=== PATIENT | female | born 1940 | race Caucasian/White ===

== ENCOUNTER 2020-05-20 14:41 | Emergency (ER) | payer MEDICARE, OTHER ==
--- NOTE | 2020-05-20 14:42 | EDM.PDOC ---
ED HPI GENERAL MEDICAL PROBLEM - General Chief Complaint: Gastrointestinal Problem Stated Complaint: FLU LIKE SYMPTOMS,POSSIBLE GI BLEED Time Seen by Provider: 05/20/20 14:42 Source of Information: Reports: Patient History Limitations: Reports: No Limitations - History of Present Illness INITIAL COMMENTS - FREE TEXT/NARRATIVE: Yudy, 80-year-old female, presents via ambulance after a 1 day history of flulike symptoms. She started experiencing nausea with some emesis that is led to dark brown with occasional red streaks in her emesis. She is an aspirin user but denies any other intake that would precipitate GI irritation. She has never had a GI bleed in the past that she is aware of. Feels somewhat dizzy and fatigued of which she demonstrates with mild pallor with stable vitals. She denies any shortness of breath chest pain nor abdominal pain. States that when this first started she thought it was the yogurt she had eaten as it was minimal blood appearance more coinciding with the yogurt she had recently ingested. Onset: Today, Sudden Duration: Minutes:, Getting Worse Location: Reports: Abdomen Quality: Reports: Pressure Severity: Moderate Improves with: Reports: None Worsens with: Reports: None Context: Reports: Sick Contact - Related Data Allergies Allergy/AdvReac Type Severity Reaction Status Date / Time No Known Drug Allergies Allergy Cannot Verified 05/20/20 14:44 Remember Home Meds: Home Meds LORazepam [Ativan] 0.5 mg PO BID PRN #60 tablet 12/25/13 [Rx] Ferrous Sulfate 325 mg PO DAILY 05/20/20 [History] Metoprolol Succinate [Toprol XL 50mg] 75 mg PO DAILY 05/20/20 [History] Montelukast [Singulair] 10 mg PO DAILY 05/20/20 [History] Multivitamin with Minerals [Multiple Vitamin] 1 tab PO DAILY 05/20/20 [History] Naproxen Sodium [Flanax] 220 mg PO BID PRN 05/20/20 [History] Sertraline [Zoloft] 100 mg PO DAILY 05/20/20 [History] amLODIPine [Norvasc] 10 mg PO DAILY 05/20/20 [History] Past Medical History HEENT History: Reports: Impaired Vision Cardiovascular History: Reports: Hypertension Respiratory History: Reports: None Gastrointestinal History: Reports: None Genitourinary History: Reports: None Musculoskeletal History: Reports: Osteoporosis, Other (See Below) (scoliosis) Neurological History: Reports: None Psychiatric History: Reports: Anxiety, Depression Hematologic History: Reports: Anemia Oncologic (Cancer) History: Reports: Basal Cell Carcinoma Dermatologic History: Reports: Other (See Below) (Basal cell carcinoma) - Past Surgical History Dermatological Surgical History: Reports: Other (See Below) (MOHS bridge of nose) - Past Imaging History Past Imaging History: Reports: Xray Social & Family History - Family History Family Medical History: No Pertinent Family History ED ROS GENERAL - Review of Systems Review Of Systems: Comprehensive ROS is negative, except as noted in HPI. ED EXAM, GENERAL - Physical Exam Exam: See Below Free Text/Narrative:: Alert, oriented arriving via ambulance. She has mild pallor noted with blood tinged residual to the lips and nares. There is a scar to the bridge of the nose into the forehead from her previous Mohs procedure. PERRLA no icterus no injection. Neck is soft supple with no lymphadenopathy no JVD. Thorax is mildly diminished secondary of her inspiratory effort with no wheezes nor crackles. Cardiac S1-S2 I do not appreciate murmur with occasional ectopy noted. Abdomen is soft bowel sounds are present no hepatosplenomegaly or tenderness on palpation. Rectal exam reveals dark black stool residual which is sent for testing. No active bleeding noted. Lower extremities have minimal edema she moves about with no discomfort nor complaint. #1 Interpretation EKG Date: 05/20/20 Time: 15:11 Rhythm: NSR Rate (Beats/Min): 89 [place]: Normal P-Wave: Present QRS: Normal ST-T: Normal QT: Normal Comparison: NA - No Prior EKG Course - Vital Signs Last Recorded V/S: Last Vital Signs Temp 97.1 F 05/20/20 16:30 Pulse 93 05/20/20 17:34 Resp 16 05/20/20 17:34 BP 157/60 H 05/20/20 17:34 Pulse Ox 99 05/20/20 17:34 - Orders/Labs/Meds Orders: Active Orders 24 hr Category Date Time Status EKG Documentation Completion [RC] ASDIRECTED Care 05/20/20 14:49 Active Peripheral IV Care [RC] . DIRECTED Care 05/20/20 14:48 Active TYPE AND SCREEN [BBK] Stat Lab 05/20/20 15:12 Received Sodium Chloride 0.9% [Normal Saline] 1,000 ml Med 05/20/20 15:15 Active IV ASDIRECTED Sodium Chloride 0.9% [Saline Flush] Med 05/20/20 14:48 Active 10 ml FLUSH Q8HR PRN Peripheral IV Insertion Adult [OM.PC] Routine Oth 05/20/20 14:48 Ordered EKG 12 Lead [EK] Urgent Ther 05/20/20 14:49 Ordered Medication Orders Sodium Chloride (Normal Saline) 1,000 mls @ 150 mls/hr IV ASDIRECTED [facility] Last Admin: 05/20/20 15:20 Dose: 150 mls/hr Documented by: MEDARDO Sodium Chloride (Sodium Chloride 0.9% 10 Ml Syringe) 10 ml FLUSH Q8HR PRN PRN Reason: keep vein open Labs: Laboratory Tests 05/20/20 05/20/20 Range/Units 15:12 15:12 WBC 12.45 H (5.00-10.00) 10^3/uL RBC 3.31 L (3.80-5.50) 10^6/uL Hgb 10.6 L (12.0-16.0) g/dL Hct 32.2 L (37.0-47.0) % MCV 97.3 H (82.0-92.0) fL MCH 32.0 H (27.0-31.0) pg MCHC 32.9 (32.0-36.0) g/dL RDW 13.3 (11.5-14.5) % Plt Count 207 (150-400) 10^3/uL MPV 8.4 (7.4-10.4) fL Add Manual Diff Yes Neutrophils % (Manual) 86 H (50-70) % Lymphocytes % (Manual) 11 L (20-40) % Monocytes % (Manual) 3 (2-8) % Absolute Neutrophils 10.71 Lymphocytes # (Manual) 1.37 Monocytes # (Manual) 0.37 Sodium 135 L (136-145) mmol/L Potassium 4.4 (3.5-5.1) mmol/L Chloride 100 (98-107) mmol/L Carbon Dioxide 24.7 (21.0-32.0) mmol/L Anion Gap 14.7 (5-15) mmol/L BUN 40 H (7-18) mg/dL Creatinine 0.90 (0.51-1.17) mg/dL Est Cr Clr Drug Dosing 48.19 mL/min Estimated GFR (MDRD) > 60 mL/min Glucose 143 H (70-140) mg/dL Calcium 9.6 (8.7-10.3) mg/dL Total Bilirubin 0.3 (0.2-1.0) mg/dL AST 18 (15-37) U/L ALT 18 (14-63) U/L Alkaline Phosphatase 67 (46-116) U/L Total Protein 6.7 (6.4-8.2) g/dL Albumin 3.63 (3.40-5.00) g/dL Meds: Medications Generic Name Dose Route Start Last Admin Trade Name Freq PRN Reason Stop Dose Admin Sodium Chloride 1,000 mls @ 150 mls/hr 05/20/20 15:15 05/20/20 15:20 Normal Saline IV 150 mls/hr ASDIRECTED TOSHIA Administration Sodium Chloride 10 ml 05/20/20 14:48 Sodium Chloride 0.9% 10 Ml Syringe FLUSH Q8HR PRN keep vein open Discontinued Medications Generic Name Dose Route Start Last Admin Trade Name Freq PRN Reason Stop Dose Admin Enalaprilat 1.25 mg 05/20/20 16:46 05/20/20 17:05 Enalaprilat 1.25 Mg/Ml Sdv IVPUSH 05/20/20 16:47 1.25 mg ONETIME ONE Administration Departure - Departure Time of Disposition: 17:39 Disposition: DC/Tfer to Acute Hospital 02 Condition: Fair Clinical Impression: GI bleeding, Anemia - Discharge Information *PRESCRIPTION DRUG MONITORING PROGRAM REVIEWED*: Not Applicable *COPY OF PRESCRIPTION DRUG MONITORING REPORT IN PATIENT ROSEY: Not Applicable Referrals: Elsi Byrnes PA-C [Primary Care Provider] - Forms: ED Department Discharge Additional Instructions: Dr [facility] accepting. Sepsis Event Note (ED) - Focused Exam Vital Signs: Vital Signs Temp Pulse Resp BP BP Pulse Ox 05/20/20 17:34 93 16 157/60 H 99 05/20/20 17:15 89 16 124/52 L 100 05/20/20 17:05 88 181/77 H 181/77 H 05/20/20 16:30 97.1 F 90 14 173/71 H 100 05/20/20 16:11 97.1 F 90 14 173/71 H 100 05/20/20 15:57 89 14 165/62 H 100 05/20/20 15:34 86 16 158/77 H 98 05/20/20 15:00 89 16 149/77 H 95 05/20/20 14:44 97.1 F 94 14 172/67 H 96 - Problem List & Annotations (1) GI bleeding SNOMED Code(s): 07384214 Code(s): K92.2 - GASTROINTESTINAL HEMORRHAGE, UNSPECIFIED Status: Acute Priority: High Current Visit: Yes Qualifiers: GI bleed type/associated pathology: unspecified peptic ulcer Qualified Code(s): K27.4 - Chronic or unspecified peptic ulcer, site unspecified, with hemorrhage (2) Anemia SNOMED Code(s): 104326098 Code(s): D64.9 - ANEMIA, UNSPECIFIED Status: Acute Current Visit: Yes Qualifiers: Anemia type: other cause - Problem List Review Problem List Initiated/Reviewed/Updated: Yes - My Orders Last 24 Hours: My Active Orders 05/20/20 14:48 Peripheral IV Care [RC] . DIRECTED Sodium Chloride 0.9% [Saline Flush] 10 ml FLUSH Q8HR PRN Peripheral IV Insertion Adult [OM.PC] Routine 05/20/20 14:49 EKG Documentation Completion [RC] ASDIRECTED EKG 12 Lead [EK] Urgent 05/20/20 15:12 TYPE AND SCREEN [BBK] Stat 05/20/20 15:15 Sodium Chloride 0.9% [Normal Saline] 1,000 ml IV ASDIRECTED - Assessment/Plan Last 24 Hours: My Active Orders 05/20/20 14:48 Peripheral IV Care [RC] . DIRECTED Sodium Chloride 0.9% [Saline Flush] 10 ml FLUSH Q8HR PRN Peripheral IV Insertion Adult [OM.PC] Routine 05/20/20 14:49 EKG Documentation Completion [RC] ASDIRECTED EKG 12 Lead [EK] Urgent 05/20/20 15:12 TYPE AND SCREEN [BBK] Stat 05/20/20 15:15 Sodium Chloride 0.9% [Normal Saline] 1,000 ml IV ASDIRECTED Plan: Dr Rowan [facility] accepting.
[2020-05-20] MEDS ORDERED: Sodium Chloride 0.9% 10 ML Syringe FLUSH PRN (14:48)
[2020-05-20] MEDS ORDERED: Sodium Chloride 0.9% 1,000 ML IV SCH (15:15)
--- NOTE | 2020-05-20 15:31 | CR ---
[id number] RAD/RAD Chest PA or AP 1V EXAM: RAD Chest PA or AP 1V INDICATION: HEMOPTYSIS. COMPARISON: December 24, 2013. DISCUSSION: Cardiomediastinal silhouette is normal in size and contour. Trace left pleural effusion. Pulmonary hyperinflation. No pneumothorax. IMPRESSION: Trace left pleural effusion. Connor Braun DO 05/20/20 1529 Thank you for allowing us to participate in the care of your patient.
[2020-05-20 16:00] LABS: ANION GAP 14.7 mmol/L (5-15); CHLORIDE,CL 100 mmol/L (98-107); SODIUM,NA 135 mmol/L (136-145)
[2020-05-20] MEDS ORDERED: Enalaprilat 1.25 MG/ML SDV IVPUSH ONE (16:46)
[2020-05-20] MEDS ORDERED: Pantoprazole 40 MG Vial IVPUSH ONE (17:38)
[2020-05-20 19:41] VITALS: BP 137/57; PULSE 84
== END 2020-05-20 19:26 ==
LOC: KA.ED 14:41
DX: K92.2 Gastrointestinal hemorrhage, unspecified (principal); D64.9 Anemia, unspecified; I10 Essential (primary) hypertension; Z79.899 Other long term (current) drug therapy
CPT/HCPCS: 36415; 71045; 80053; 82271; 82272; 85014; 85018; 85025; 93005; 96374; 96375; 99284; 99285-25; C9113; J7030